=== PATIENT | male | born 1970 | race Caucasian/White ===

== ENCOUNTER 2022-03-14 19:09 | Inpatient (IN) | payer OTHER ==
[~2022-03-14 19:09] MED LIST: Iopamidol-370 76% 500 ML 1 ML ONE
[2022-03-14] MEDS ORDERED: Amiodarone 150 MG/3 ML VIAL ONE ×4 (19:17→19:43)
[2022-03-14] MEDS ORDERED: Vancomycin 1 GM/200 ML (FROZEN) BAG ONE (19:35)
[2022-03-14] MEDS ORDERED: Cefepime 2 GM VIAL ONE (19:35)
[2022-03-14] MEDS ORDERED: Cefepime 1 GM VIAL ONE (19:37)
[2022-03-14] MEDS ORDERED: Magnesium 2 GM/50 ML BAG (IN WATER) ONE (19:41)
[2022-03-14 19:46] LABS: Hemoglobin 16.2 g/dL (14.0-18.0); Mean Corpuscular HGB CONC 32.1 g/dL (32.0-36.0); Mean Corpuscular Hemoglobin 28.5 pg (27.0-31.0); Mean Corpuscular Volume 88.7 fl (78.0-98.0)
[2022-03-14] MEDS ORDERED: NOREPINEPHRINE 8 MG/250 ML-D5W 250 ML ONE (19:51)
[2022-03-14] MEDS ORDERED: VANCOMYCIN 2 GRAM/500 ML BAG 2 GM in Premix Bag 1 BAG IVPB SCH (20:00)
[2022-03-14 20:05] LABS: ALT (SGPT) 29 U/L (8-55); AST (SGOT) 45 U/L (5-34); Albumin 2.7 g/dL (3.5-5.0); Alkaline Phosphatase 221 U/L (40-110); Anion Gap 20 mmol/L (10-20); BUN (Urea Nitrogen) 103 mg/dL (8.4-25.7); Bilirubin, Total 10.8 mg/dL (0.2-1.2); Calc. Creatinine Clearance 0 mL/min (70-130); Calcium 7.5 mg/dL (7.8-10.44); Carbon Dioxide 11 mmol/L (22-29); Chloride 104 mmol/L (98-107); Estimated GFR 26; Globulin 3.2 g/dL (2.4-3.5); Glucose 85 mg/dL (70-105); Potassium 3.8 mmol/L (3.5-5.1); Protein, Total 5.9 g/dL (6.0-8.3); Sodium 131 mmol/L (136-145)
[2022-03-14 20:15] LABS: White Blood Cell (WBC) Count 30.6 10x3/uL (4.8-10.8)
[2022-03-14 20:16] LABS: Band 26 % (5-11); Lymphocytes 1 % (21-51); MDiff Complete? YES; Mean Platelet Volume 13.7 fL (7.4-10.4); Metamyelocyte 1 % (0-0); Monocytes 2 % (0-10); Neutrophil 69 % (42-75); Platelet Count 37 10x3/uL (130-400); Platelet Morphology Comment Appears Decreased; RBC Distribution Width 14.6 % (11.5-14.5); RBC Morphology Normal; Reactive Lymphocytes 1 % (0-10); Toxic Granulation SLIGHT; Vacuoles SLIGHT
[2022-03-14 20:23] LABS: CKMB 8.1 ng/mL (0-6.6)
[2022-03-14 20:52] LABS: SARS-CoV-2 NAA Rapid Test Not Detected (NotDetected)
[2022-03-14] MEDS ORDERED: Piperacillin/Tazobactam 4.5 GM in Sodium Chloride 0.9% 100 ML IVPB SCH (22:00)
[2022-03-14 22:38] LABS: Lactic Acid 3.4 mmol/L (0.5-2.2)
[2022-03-14] MEDS ORDERED: Octreotide Acetate 1,250 MCG in Sodium Chloride 0.9% 250 ML 250 ML IVPB SCH (22:45)
[2022-03-14] MEDS ORDERED: Octreotide Acetate 50 MCG/ML AMP SLOW IVP SCH (22:45)
[2022-03-14] MEDS ORDERED: Pantoprazole 40 MG VIAL IVP SCH (22:45)
[2022-03-14] MEDS ORDERED: Pantoprazole 80 MG in Sodium Chloride 0.9% 100 ML IVPB SCH (22:45)
[2022-03-14] MEDS ORDERED: Acetaminophen 650 MG Suppository PR PRN (22:50)
[2022-03-14] MEDS ORDERED: Ondansetron ODT 4 MG TAB PO PRN (22:50)
[2022-03-14] MEDS ORDERED: Ondansetron PF 4 MG/2 ML Vial IVP PRN (22:50)
[2022-03-14 23:30] LABS: Bilirubin, Direct 7.8 mg/dL (0.1-0.3); Bilirubin, Total 10.5 mg/dL (0.2-1.2)
[2022-03-14 23:32] LABS: ALT (SGPT) 26 U/L (8-55); AST (SGOT) 42 U/L (5-34); Albumin 2.5 g/dL (3.5-5.0); Alkaline Phosphatase 154 U/L (40-110); Anion Gap 18 mmol/L (10-20); BUN (Urea Nitrogen) 100 mg/dL (8.4-25.7); Bilirubin, Total 10.9 mg/dL (0.2-1.2); Calc. Creatinine Clearance 0 mL/min (70-130); Calcium 7.7 mg/dL (7.8-10.44); Carbon Dioxide 11 mmol/L (22-29); Chloride 102 mmol/L (98-107); Estimated GFR 26; Globulin 3.1 g/dL (2.4-3.5); Glucose 97 mg/dL (70-105); Potassium 3.1 mmol/L (3.5-5.1); Protein, Total 5.6 g/dL (6.0-8.3); Sodium 128 mmol/L (136-145)
[2022-03-14] MEDS: Potassium Chloride 20 MEQ in Premix Bag 1 BAG IVPB SCH (23:45)
[2022-03-15 00:22] LABS: Bilirubin 1+ (Negative); Blood, Urine 2+ (Negative); Clarity Turbid (Clear); Glucose, Urine (Dipstick) Normal (Negative); Ketone, Urine Negative (Negative); Leukocyte Negative Leu/uL (Negative); Nitrite Negative (Negative); Protein, Urine (Dipstick) 70 mg/dL (Neg-Trace); RBC/HPF 0-3 HPF (0-3); Specific Gravity, Urine 1.022 (1.002-1.036); Urobilinogen Normal mg/dL (Less than 2); pH, Urine 5.5 (5.0-9.0)
[2022-03-15] MEDS: Sodium Chloride 0.9% 1,000 ML IV SCH ×3 (00:25→21:20)
[2022-03-15 00:37] LABS: Bacteria/HPF 1+ HPF (None Seen); Squamous Epithelial 0-3 HPF (0-3)
[2022-03-15] MEDS: Amiodarone 450 MG, Admixture Fee 1 EACH in Dextrose 5% in Water 250 ML IVPB SCH (01:30)
[2022-03-15] MEDS: NOREPINEPHRINE 8 MG/250 ML-D5W 250 ML IVPB SCH ×3 (02:41→22:39)
[2022-03-15] MEDS: Potassium Chloride 20 MEQ in Premix Bag 1 BAG IVPB SCH (02:44)
[2022-03-15] MEDS: Piperacillin/Tazobactam 3.375 GM in Sodium Chloride 0.9% 100 ML IVPB SCH ×3 (02:45→21:20)
[2022-03-15 04:11] LABS: INR-International Normal Ratio 1.4; PTT 33.8 sec (22.9-36.1); Prothrombin Time 17.6 sec (12.0-14.7)
[2022-03-15 04:12] LABS: Lactic Acid 1.5 mmol/L (0.5-2.2)
[2022-03-15 04:16] LABS: Anion Gap 19 mmol/L (10-20); BUN (Urea Nitrogen) 95 mg/dL (8.4-25.7); CK (CPK) 189 U/L (30-200); Calc. Creatinine Clearance 61 mL/min (70-130); Calcium 7.8 mg/dL (7.8-10.44); Carbon Dioxide 12 mmol/L (22-29); Chloride 104 mmol/L (98-107); Estimated GFR 30; Glucose 154 mg/dL (70-105); Potassium 4.2 mmol/L (3.5-5.1); Sodium 131 mmol/L (136-145); Uric Acid 11.8 mg/dL (3.5-7.2)
[2022-03-15 04:17] LABS: ALT (SGPT) 33 U/L (8-55); AST (SGOT) 46 U/L (5-34); Albumin 2.7 g/dL (3.5-5.0); Alkaline Phosphatase 139 U/L (40-110); Bilirubin, Direct 8.9 mg/dL (0.1-0.3); Bilirubin, Total 11.9 mg/dL (0.2-1.2); Protein, Total 5.8 g/dL (6.0-8.3)
[2022-03-15 04:40] LABS: Anisocytosis SLIGHT = 6-15 cells (100X) (0-5/hpf); Band 21 % (5-11); Hemoglobin 15.4 g/dL (14.0-18.0); Lymphocytes 4 % (21-51); MDiff Complete? YES; Mean Corpuscular HGB CONC 33.6 g/dL (32.0-36.0); Mean Corpuscular Hemoglobin 29.2 pg (27.0-31.0); Mean Corpuscular Volume 86.9 fl (78.0-98.0); Mean Platelet Volume 14.1 fL (7.4-10.4); Monocytes 2 % (0-10); Neutrophil 72 % (42-75); Platelet Count 47 10x3/uL (130-400); Platelet Morphology Comment Appears Decreased; RBC Distribution Width 14.7 % (11.5-14.5); Reactive Lymphocytes 1 % (0-10); Red Blood Cell (RBC) Count 5.28 mill/uL (4.70-6.10); Toxic Granulation SLIGHT; Vacuoles SLIGHT
[2022-03-15] MEDS ORDERED: Pantoprazole 80 MG, Admixture Fee 1 EACH in Sodium Chloride 0.9% 100 ML IVPB SCH (08:15)
[2022-03-15 08:54] LABS: ALT (SGPT) 31 U/L (8-55); AST (SGOT) 41 U/L (5-34); Albumin 2.8 g/dL (3.5-5.0); Alkaline Phosphatase 141 U/L (40-110); Anion Gap 17 mmol/L (10-20); BUN (Urea Nitrogen) 88 mg/dL (8.4-25.7); Bilirubin, Total 12.5 mg/dL (0.2-1.2); Calc. Creatinine Clearance 72 mL/min (70-130); Calcium 7.7 mg/dL (7.8-10.44); Carbon Dioxide 13 mmol/L (22-29); Chloride 106 mmol/L (98-107); Estimated GFR 36; Globulin 3.2 g/dL (2.4-3.5); Glucose 162 mg/dL (70-105); Sodium 132 mmol/L (136-145)
[2022-03-15 11:07] LABS: Campy jejuni + coli by PCR Negative (Negative); STEC Shiga Toxin 1+2 Negative (Negative); Salmonella spp. by PCR Negative (Negative); Shigella spp + EIEC by PCR Negative (Negative)
[2022-03-15 11:08] LABS: Troponin I 1.119 ng/mL (< 0.028)
[2022-03-15] MEDS: Albumin 25% 25 GM/100 ML BOT IVPB SCH ×3 (13:34→22:39)
[2022-03-15] MEDS ORDERED: Bupivacaine/Epinephrine 0.25% 30 ML VIAL ONE (15:51)
[2022-03-15] MEDS ORDERED: Iopamidol 15 ML ONE (15:51)
[2022-03-15] MEDS ORDERED: Fentanyl 250 MCG/5 ML VIAL ONE (15:57)
[2022-03-15] MEDS ORDERED: Lidocaine 1% (PF) 30 ML VIAL ONE (16:03)
[2022-03-15] MEDS ORDERED: Lidocaine 1% PF 5 ML VIAL ONE (16:51)
[2022-03-15] MEDS ORDERED: Rocuronium Bromide 10 MG/ML (10ML VIAL) ONE (16:51)
[2022-03-15] MEDS ORDERED: PHENYLEPHRINE-NS 100 MCG/ML 10 ML SYRINGE ONE (16:51)
[2022-03-15] MEDS ORDERED: Esmolol 100 MG/10 ML VIAL ONE (16:51)
[2022-03-15] MEDS ORDERED: Succinylcholine Chloride 100 MG/5 ML SYRINGE FS ONE (16:51)
[2022-03-15] MEDS ORDERED: Calcium Chloride 1 GM/10 ML Abboject SYRINGE ONE (16:51)
[2022-03-15] MEDS ORDERED: Vecuronium 10 MG VIAL ONE (16:51)
[2022-03-15] MEDS ORDERED: Nitroglycerin 2% Ointment 1 INCH/1 GM Packet ONE (18:13)
[2022-03-15 18:17] LABS: Hemoglobin 13.9 g/dL (14.0-18.0); Mean Corpuscular HGB CONC 33.8 g/dL (32.0-36.0); Mean Corpuscular Hemoglobin 29.6 pg (27.0-31.0); Mean Corpuscular Volume 87.8 fl (78.0-98.0); Mean Platelet Volume 10.9 fL (7.4-10.4); Platelet Count 51 10x3/uL (130-400); RBC Distribution Width 14.8 % (11.5-14.5); Red Blood Cell (RBC) Count 4.69 mill/uL (4.70-6.10); White Blood Cell (WBC) Count 21.5 10x3/uL (4.8-10.8)
[2022-03-15 18:33] LABS: Band 15 % (5-11); Eosinophils 1 % (0-10); Lymphocytes 6 % (21-51); MDiff Complete? YES; Monocytes 8 % (0-10); Neutrophil 69 % (42-75); Platelet Morphology Comment Appears Adequate; RBC Morphology Normal; Reactive Lymphocytes 1 % (0-10); Toxic Granulation SLIGHT; Vacuoles SLIGHT
[2022-03-15] MEDS ORDERED: Midazolam HCl 2 mg/2 ml Vial SLOW IVP PRN (20:53)
[2022-03-15] MEDS ORDERED: Morphine CADD 100 ML IVPB SCH (21:00)
[2022-03-15] MEDS ORDERED: DISCONTINUE PREVIOUS NARCOTIC PAIN MEDICATIONS AND BENZODIAZEPINES FS SCH (21:00)
[2022-03-15] MEDS ORDERED: Propofol BOLUS 1,000 MG/100 ML VIAL IV PRN (21:00)
[2022-03-15] MEDS: Propofol 1,000 MG/100 ML VIAL IV PRN (21:03)
[2022-03-15 21:14] LABS: Actual Bicarbonate (HCO3a) 18.2 mEq/L (22-28); Base Excess (BEa) -10.1 mEq/L (-2.0 to +3.0); CO2 Tension 49.1 mmHg (35.0-45.0); Calcium, Ionized (arterial) 1.15 mmol/L (1.12-1.30); Carboxyhemoglobin (COHb) 0.9 gm% (0.0-3.0); Hemoglobin (Hb) 14.3 g/dL (14.0-18.0); O2 Tension (PaO2), arterial 88.3 mmHg (80.0-100.0); Potassium - ABG Lab 4.16 mmol/L (3.70-5.30)
[2022-03-15 21:27] LABS: ALV-art Gradient 278.125 mmHg (0-20); Puncture Site Arterial Line; pH, Arterial 7.19 (7.35-7.45)
[2022-03-15 21:36] LABS: Hemoglobin 13.7 g/dL (14.0-18.0); Mean Corpuscular HGB CONC 34.3 g/dL (32.0-36.0); Mean Corpuscular Hemoglobin 30.1 pg (27.0-31.0); Mean Corpuscular Volume 87.7 fl (78.0-98.0); Mean Platelet Volume 11.3 fL (7.4-10.4); Platelet Count 49 10x3/uL (130-400); RBC Distribution Width 15.1 % (11.5-14.5); Red Blood Cell (RBC) Count 4.57 mill/uL (4.70-6.10); White Blood Cell (WBC) Count 28.1 10x3/uL (4.8-10.8)
[2022-03-15] MEDS: Morphine 4 MG/ML VIAL SLOW IVP PRN (21:39)
[2022-03-15 21:46] LABS: INR-International Normal Ratio 1.3; PTT 30.5 sec (22.9-36.1); Prothrombin Time 17.1 sec (12.0-14.7)
[2022-03-15 21:54] LABS: Band 14 % (5-11); Hypochromia SLIGHT = 6-15 cells (100X) (0-5/hpf); Lymphocytes 6 % (21-51); MDiff Complete? YES; Monocytes 12 % (0-10); Neutrophil 67 % (42-75); Platelet Morphology Comment Appears Decreased; Reactive Lymphocytes 1 % (0-10)
[2022-03-15 22:21] LABS: Actual Bicarbonate (HCO3a) 17.5 mEq/L (22-28); Base Excess (BEa) -8.2 mEq/L (-2.0 to +3.0); CO2 Tension 36.3 mmHg (35.0-45.0); Calcium, Ionized (arterial) 1.11 mmol/L (1.12-1.30); Carboxyhemoglobin (COHb) 0.8 gm% (0.0-3.0); Hemoglobin (Hb) 13.1 g/dL (14.0-18.0); O2 Tension (PaO2), arterial 105.7 mmHg (80.0-100.0); Potassium - ABG Lab 3.97 mmol/L (3.70-5.30)
[2022-03-15 22:22] LABS: Puncture Site Arterial Line
[2022-03-15 22:23] LABS: ALV-art Gradient 276.725 mmHg (0-20)
[2022-03-16] MEDS: Sodium Chloride 0.9% 1,000 ML IV SCH ×3 (00:30→14:21)
[2022-03-16] MEDS: Piperacillin/Tazobactam 3.375 GM in Sodium Chloride 0.9% 100 ML IVPB SCH ×2 (01:25→09:13)
[2022-03-16 04:46] LABS: Hemoglobin 12.1 g/dL (14.0-18.0); Mean Corpuscular Hemoglobin 29.7 pg (27.0-31.0); Mean Corpuscular Volume 87.5 fl (78.0-98.0); Mean Platelet Volume 11.6 fL (7.4-10.4); Platelet Count 47 10x3/uL (130-400); RBC Distribution Width 14.9 % (11.5-14.5); Red Blood Cell (RBC) Count 4.08 mill/uL (4.70-6.10); White Blood Cell (WBC) Count 19.1 10x3/uL (4.8-10.8)
[2022-03-16] MEDS: Albumin 25% 25 GM/100 ML BOT IVPB SCH (05:00)
[2022-03-16 05:05] LABS: ALT (SGPT) 31 U/L (8-55); AST (SGOT) 47 U/L (5-34); Alkaline Phosphatase 91 U/L (40-110); Anion Gap 15 mmol/L (10-20); BUN (Urea Nitrogen) 67 mg/dL (8.4-25.7); Calc. Creatinine Clearance 95 mL/min (70-130); Calcium 7.6 mg/dL (7.8-10.44); Carbon Dioxide 15 mmol/L (22-29); Chloride 114 mmol/L (98-107); Estimated GFR 50; Globulin 2.6 g/dL (2.4-3.5); Glucose 121 mg/dL (70-105); Potassium 3.7 mmol/L (3.5-5.1); Protein, Total 5.6 g/dL (6.0-8.3); Sodium 140 mmol/L (136-145)
[2022-03-16 05:31] LABS: Band 13 % (5-11); Eosinophils 1 % (0-10); Hypochromia SLIGHT = 6-15 cells (100X) (0-5/hpf); Lymphocytes 18 % (21-51); MDiff Complete? YES; Neutrophil 66 % (42-75); Platelet Morphology Comment Appears Decreased; Reactive Lymphocytes 2 % (0-10)
[2022-03-16] MEDS: Propofol 1,000 MG/100 ML VIAL IV PRN (06:44)
[2022-03-16] MEDS: Morphine 4 MG/ML VIAL SLOW IVP PRN (06:45)
[2022-03-16] MEDS ORDERED: Dexmedetomidine In 0.9 % NaCl 100 ML IVPB SCH (07:45)
[2022-03-16 08:15] LABS: INR-International Normal Ratio 1.4; PTT 30.5 sec (22.9-36.1); Prothrombin Time 18.1 sec (12.0-14.7)
[2022-03-16] MEDS: Pantoprazole 40 MG VIAL IVP SCH (09:12)
[2022-03-16] MEDS: Amiodarone 450 MG, Admixture Fee 1 EACH in Dextrose 5% in Water 250 ML IVPB SCH ×2 (09:12→23:46)
[2022-03-16] MEDS: Dexamethasone 4 mg/ml Vial SLOW IVP SCH ×3 (10:39→22:12)
[2022-03-16] MEDS ORDERED: Calcium Chloride 13.6 MEQ in Sodium Chloride 0.9% 100 ML IVPB SCH (10:45)
[2022-03-16] MEDS ORDERED: Meropenem 1 GM in Sodium Chloride 0.9% 100 ML IVPB SCH ×2 (15:30→22:00)
[2022-03-16] MEDS: Meropenem 1 GM in Sodium Chloride 0.9% 100 ML IVPB SCH (23:37)
[2022-03-17] MEDS: Sodium Chloride 0.9% 1,000 ML IV SCH ×3 (01:55→08:40)
[2022-03-17] MEDS: Dexamethasone 4 mg/ml Vial SLOW IVP SCH (04:23)
[2022-03-17 05:32] LABS: ALT (SGPT) 29 U/L (8-55); AST (SGOT) 30 U/L (5-34); Albumin 2.8 g/dL (3.5-5.0); Alkaline Phosphatase 92 U/L (40-110); Anion Gap 13 mmol/L (10-20); BUN (Urea Nitrogen) 55 mg/dL (8.4-25.7); Bilirubin, Total 15.9 mg/dL (0.2-1.2); Calc. Creatinine Clearance 111 mL/min (70-130); Calcium 7.9 mg/dL (7.8-10.44); Carbon Dioxide 18 mmol/L (22-29); Chloride 115 mmol/L (98-107); Estimated GFR 61; Globulin 2.7 g/dL (2.4-3.5); Glucose 131 mg/dL (70-105); Magnesium 2.7 mg/dL (1.6-2.6); Potassium 4.5 mmol/L (3.5-5.1); Protein, Total 5.5 g/dL (6.0-8.3); Sodium 141 mmol/L (136-145)
[2022-03-17 05:43] LABS: Band 18 % (5-11); Hemoglobin 11.5 g/dL (14.0-18.0); Lymphocytes 3 % (21-51); MDiff Complete? YES; Mean Corpuscular HGB CONC 34.4 g/dL (32.0-36.0); Mean Corpuscular Hemoglobin 30.7 pg (27.0-31.0); Monocytes 4 % (0-10); Neutrophil 75 % (42-75); Platelet Count 48 10x3/uL (130-400); Platelet Morphology Comment Appears Decreased; RBC Distribution Width 14.8 % (11.5-14.5); RBC Morphology Normal; Red Blood Cell (RBC) Count 3.76 mill/uL (4.70-6.10); White Blood Cell (WBC) Count 16.1 10x3/uL (4.8-10.8)
[2022-03-17 06:23] LABS: INR-International Normal Ratio 1.5; PTT 33.1 sec (22.9-36.1); Prothrombin Time 18.9 sec (12.0-14.7)
[2022-03-17] MEDS: Meropenem 1 GM in Sodium Chloride 0.9% 100 ML IVPB SCH (07:35)
[2022-03-17] MEDS: Pantoprazole 40 MG VIAL IVP SCH (07:35)
[2022-03-17] MEDS ORDERED: Furosemide 20 MG/2 ML VIAL SLOW IVP SCH (09:15)
[2022-03-17] MEDS: cefTRIAXone\\ROCEPHIN 2 GM in Sodium Chloride 0.9% 100 ML IVPB SCH (11:55)
[2022-03-17] MEDS: Furosemide 20 MG/2 ML VIAL SLOW IVP SCH ×2 (12:11→23:22)
[2022-03-17] MEDS: Amiodarone 200 MG TAB PO SCH ×2 (14:05→21:21)
[2022-03-18] MEDS: Sodium Chloride 0.9% 1,000 ML IV SCH (02:35)
[2022-03-18 06:24] LABS: ALT (SGPT) 25 U/L (8-55); AST (SGOT) 17 U/L (5-34); Albumin 2.8 g/dL (3.5-5.0); Alkaline Phosphatase 88 U/L (40-110); Anion Gap 14 mmol/L (10-20); BUN (Urea Nitrogen) 51 mg/dL (8.4-25.7); Bilirubin, Total 11.6 mg/dL (0.2-1.2); Calc. Creatinine Clearance 120 mL/min (70-130); Calcium 7.9 mg/dL (7.8-10.44); Carbon Dioxide 20 mmol/L (22-29); Chloride 111 mmol/L (98-107); Estimated GFR 65; Globulin 3.1 g/dL (2.4-3.5); Glucose 126 mg/dL (70-105); Magnesium 1.9 mg/dL (1.6-2.6); Potassium 4.1 mmol/L (3.5-5.1); Protein, Total 5.9 g/dL (6.0-8.3); Sodium 141 mmol/L (136-145)
[2022-03-18 06:30] LABS: Band 20 % (5-11); Hemoglobin 12.3 g/dL (14.0-18.0); Lymphocytes 2 % (21-51); MDiff Complete? YES; Mean Corpuscular HGB CONC 33.1 g/dL (32.0-36.0); Mean Corpuscular Hemoglobin 29.4 pg (27.0-31.0); Mean Corpuscular Volume 88.8 fl (78.0-98.0); Mean Platelet Volume 12.3 fL (7.4-10.4); Monocytes 3 % (0-10); Neutrophil 74 % (42-75); Platelet Count 53 10x3/uL (130-400); Platelet Morphology Comment Appears Decreased; Polychromasia SLIGHT = 2-3 cells (100X) (0-2/hpf); RBC Distribution Width 14.8 % (11.5-14.5); Reactive Lymphocytes 1 % (0-10); White Blood Cell (WBC) Count 12.7 10x3/uL (4.8-10.8)
[2022-03-18] MEDS: Polyethylene Glycol 3350 17 GM Packet PO SCH (09:29)
[2022-03-18] MEDS: Amiodarone 200 MG TAB PO SCH ×3 (09:29→21:31)
[2022-03-18] MEDS: Furosemide 20 MG/2 ML VIAL SLOW IVP SCH ×2 (09:29→21:25)
[2022-03-18] MEDS: Pantoprazole 40 MG VIAL IVP SCH (09:29)
[2022-03-18] MEDS: Senokot S 8.6-50 MG TAB PO SCH ×2 (09:29→21:31)
[2022-03-18] MEDS: cefTRIAXone\\ROCEPHIN 2 GM in Sodium Chloride 0.9% 100 ML IVPB SCH (11:59)
[2022-03-18] MEDS ORDERED: Furosemide 20 MG TAB PO SCH (20:00)
[2022-03-19 05:47] LABS: Hemoglobin 13.7 g/dL (14.0-18.0); Mean Corpuscular HGB CONC 33.1 g/dL (32.0-36.0); Mean Corpuscular Hemoglobin 29.1 pg (27.0-31.0); Mean Platelet Volume 12.9 fL (7.4-10.4); Platelet Count 63 10x3/uL (130-400); RBC Distribution Width 14.9 % (11.5-14.5); Red Blood Cell (RBC) Count 4.69 mill/uL (4.70-6.10); White Blood Cell (WBC) Count 15.8 10x3/uL (4.8-10.8)
[2022-03-19 06:08] LABS: ALT (SGPT) 27 U/L (8-55); AST (SGOT) 20 U/L (5-34); Alkaline Phosphatase 116 U/L (40-110); Anion Gap 12 mmol/L (10-20); BUN (Urea Nitrogen) 36 mg/dL (8.4-25.7); Bilirubin, Total 9.4 mg/dL (0.2-1.2); Calc. Creatinine Clearance 153 mL/min (70-130); Calcium 8.1 mg/dL (7.8-10.44); Carbon Dioxide 23 mmol/L (22-29); Chloride 110 mmol/L (98-107); Estimated GFR 87; Globulin 3.6 g/dL (2.4-3.5); Glucose 112 mg/dL (70-105); Iron 68 ug/dL (65-175); Iron Binding Capacity, Total 215 mcg/dL (261-462); Magnesium 1.8 mg/dL (1.6-2.6); Potassium 3.7 mmol/L (3.5-5.1); Protein, Total 6.6 g/dL (6.0-8.3); Sodium 141 mmol/L (136-145)
[2022-03-19 06:22] LABS: Ferritin 501.18 ng/mL (22-322)
[2022-03-19 06:37] LABS: Hep A IgM AB Non-Reactive (NonReactive)
[2022-03-19 06:38] LABS: HBCM Index 0.24 S/CO (0-0.79); HBSAB Concentration 0.09 mIU/mL; HBSAg Index 0.39 S/CO (0-0.99); Hep A IgM S/CO 0.29 S/CO (0-0.79); Hep B Surf AB NonReactive (NonReactive); Hep B Surf Ag NonReactive S/CO (NonReactive); Hep C IgG Ab Non-Reactive (NonReactive); Hep C Index 0.18 S/CO (0-0.79); Hepatitis B Core IgM Abs NonReactive (NonReactive)
[2022-03-19 06:58] LABS: Band 17 % (5-11); Lymphocytes 4 % (21-51); MDiff Complete? YES; Monocytes 2 % (0-10); Neutrophil 77 % (42-75); Platelet Morphology Comment Appears Decreased; Polychromasia SLIGHT = 2-3 cells (100X) (0-2/hpf)
[2022-03-19] MEDS: Spironolactone 25 MG TAB PO SCH (09:04)
[2022-03-19] MEDS: Polyethylene Glycol 3350 17 GM Packet PO SCH (09:04)
[2022-03-19] MEDS: Pantoprazole 40 MG VIAL IVP SCH ×2 (09:04→09:07)
[2022-03-19] MEDS: Amiodarone 200 MG TAB PO SCH ×3 (09:04→20:06)
[2022-03-19] MEDS: Senokot S 8.6-50 MG TAB PO SCH ×2 (09:05→20:08)
[2022-03-19] MEDS ORDERED: Metoprolol Tartrate 25 MG TAB PO SCH (12:30)
[2022-03-19] MEDS: cefTRIAXone\\ROCEPHIN 2 GM in Sodium Chloride 0.9% 100 ML IVPB SCH (14:03)
[2022-03-19 14:37] VITALS: BMI 36.8
[2022-03-19] MEDS: metroNIDAZOLE 500 MG TAB PO SCH ×2 (17:01→20:07)
[2022-03-19 17:11] LABS: EliA Vaculitis New Method **** NEW METHOD ****; Mitochondrial Ab 2.7 U/mL (<4 Negative)
[2022-03-19] MEDS: Ciprofloxacin 500 MG TAB PO SCH (20:06)
[2022-03-19] MEDS: Metoprolol Tartrate 25 MG TAB PO SCH (20:07)
[2022-03-20] MEDS: Ciprofloxacin 500 MG TAB PO SCH ×2 (05:25→20:15)
[2022-03-20 05:33] LABS: Hemoglobin 12.6 g/dL (14.0-18.0); Mean Corpuscular HGB CONC 32.9 g/dL (32.0-36.0); Mean Corpuscular Hemoglobin 29.3 pg (27.0-31.0); Mean Corpuscular Volume 89.2 fl (78.0-98.0); Mean Platelet Volume 11.9 fL (7.4-10.4); Platelet Count 52 10x3/uL (130-400); RBC Distribution Width 14.9 % (11.5-14.5); White Blood Cell (WBC) Count 18.6 10x3/uL (4.8-10.8)
[2022-03-20 05:51] LABS: ALT (SGPT) 21 U/L (8-55); AST (SGOT) 28 U/L (5-34); Albumin 2.7 g/dL (3.5-5.0); Alkaline Phosphatase 99 U/L (40-110); Anion Gap 13 mmol/L (10-20); BUN (Urea Nitrogen) 26 mg/dL (8.4-25.7); Bilirubin, Total 12.6 mg/dL (0.2-1.2); Calc. Creatinine Clearance 179 mL/min (70-130); Calcium 7.8 mg/dL (7.8-10.44); Carbon Dioxide 21 mmol/L (22-29); Chloride 106 mmol/L (98-107); Estimated GFR 103; Globulin 3.4 g/dL (2.4-3.5); Glucose 106 mg/dL (70-105); Magnesium 1.5 mg/dL (1.6-2.6); Protein, Total 6.1 g/dL (6.0-8.3); Sodium 136 mmol/L (136-145)
[2022-03-20 05:52] LABS: Band 5 % (5-11); Hypochromia SLIGHT = 6-15 cells (100X) (0-5/hpf); Lymphocytes 3 % (21-51); MDiff Complete? YES; Monocytes 4 % (0-10); Neutrophil 88 % (42-75); Platelet Morphology Comment Appears Decreased
[2022-03-20] MEDS: Amiodarone 200 MG TAB PO SCH ×3 (08:20→20:15)
[2022-03-20] MEDS: metroNIDAZOLE 500 MG TAB PO SCH ×3 (08:20→20:16)
[2022-03-20] MEDS: Metoprolol Tartrate 25 MG TAB PO SCH ×2 (08:20→20:15)
[2022-03-20] MEDS: Pantoprazole 40 MG VIAL IVP SCH ×2 (08:20→10:07)
[2022-03-20] MEDS: Spironolactone 25 MG TAB PO SCH (08:20)
[2022-03-20] MEDS: Polyethylene Glycol 3350 17 GM Packet PO SCH (08:21)
[2022-03-20] MEDS: Senokot S 8.6-50 MG TAB PO SCH ×2 (08:21→20:16)
[2022-03-21] MEDS ORDERED: Baclofen 10 MG TAB PO SCH ×2 (03:15→21:15)
[2022-03-21 05:12] LABS: Alpha-1-Antitrypsin 226 mg/dL (101-187)
[2022-03-21 05:19] LABS: ALT (SGPT) 22 U/L (8-55); AST (SGOT) 16 U/L (5-34); Albumin 2.4 g/dL (3.5-5.0); Alkaline Phosphatase 94 U/L (40-110); Anion Gap 11 mmol/L (10-20); BUN (Urea Nitrogen) 20 mg/dL (8.4-25.7); Bilirubin, Total 8.8 mg/dL (0.2-1.2); Calc. Creatinine Clearance 192 mL/min (70-130); Calcium 7.8 mg/dL (7.8-10.44); Carbon Dioxide 22 mmol/L (22-29); Chloride 105 mmol/L (98-107); Estimated GFR 105; Globulin 3.5 g/dL (2.4-3.5); Glucose 121 mg/dL (70-105); Magnesium 1.8 mg/dL (1.6-2.6); Potassium 4.2 mmol/L (3.5-5.1); Protein, Total 5.9 g/dL (6.0-8.3); Sodium 134 mmol/L (136-145)
[2022-03-21] MEDS: Ciprofloxacin 500 MG TAB PO SCH ×2 (05:25→19:36)
[2022-03-21 06:04] LABS: Anisocytosis SLIGHT = 6-15 cells (100X) (0-5/hpf); Band 1 % (5-11); Hemoglobin 11.8 g/dL (14.0-18.0); Lymphocytes 6 % (21-51); MDiff Complete? YES; Mean Corpuscular HGB CONC 32.4 g/dL (32.0-36.0); Mean Corpuscular Hemoglobin 29.5 pg (27.0-31.0); Mean Platelet Volume 8.3 fL (7.4-10.4); Monocytes 5 % (0-10); Neutrophil 88 % (42-75); Platelet Count 51 10x3/uL (130-400); Platelet Morphology Comment Appears Decreased; RBC Distribution Width 14.9 % (11.5-14.5); Red Blood Cell (RBC) Count 3.99 mill/uL (4.70-6.10); White Blood Cell (WBC) Count 16.2 10x3/uL (4.8-10.8)
[2022-03-21] MEDS: metroNIDAZOLE 500 MG TAB PO SCH ×3 (08:07→21:27)
[2022-03-21] MEDS: Senokot S 8.6-50 MG TAB PO SCH ×2 (08:07→21:08)
[2022-03-21] MEDS: Pantoprazole 40 MG VIAL IVP SCH (08:07)
[2022-03-21] MEDS: Spironolactone 25 MG TAB PO SCH (08:07)
[2022-03-21] MEDS: Metoprolol Tartrate 25 MG TAB PO SCH ×2 (08:07→21:27)
[2022-03-21] MEDS: Amiodarone 200 MG TAB PO SCH ×3 (08:07→21:27)
[2022-03-21] MEDS: Polyethylene Glycol 3350 17 GM Packet PO SCH (08:07)
[2022-03-21] MEDS: Gabapentin 300 MG CAP PO SCH ×2 (09:22→21:28)
[2022-03-21] MEDS ORDERED: Metoclopramide HCl 10 MG/2 ML VIAL IVP SCH (23:00)
[2022-03-22] MEDS: Metoclopramide HCl 10 MG TAB PO SCH ×2 (02:53→09:38)
[2022-03-22] MEDS: Ciprofloxacin 500 MG TAB PO SCH ×2 (05:25→20:46)
[2022-03-22 05:51] LABS: #Eosinphils 0.1 thou/uL (0.0-0.7); #Lymphocytes 1.4 thou/uL (1.20-3.40); #Neutrophils 15.6 thou/uL (1.40-6.50); %Eosinophils 0.6 % (0.0-10.0); %Lymphocytes 7.5 % (21.0-51.0); %Monocytes 5.7 % (0.0-10.0); %Neutrophils 86.2 % (42.0-75.0); Hemoglobin 11.5 g/dL (14.0-18.0); Mean Corpuscular HGB CONC 32.5 g/dL (32.0-36.0); Mean Corpuscular Hemoglobin 29.9 pg (27.0-31.0); Mean Corpuscular Volume 92.2 fl (78.0-98.0); Mean Platelet Volume 12.8 fL (7.4-10.4); Platelet Count 72 10x3/uL (130-400); RBC Distribution Width 15.5 % (11.5-14.5); Red Blood Cell (RBC) Count 3.84 mill/uL (4.70-6.10); White Blood Cell (WBC) Count 18.1 10x3/uL (4.8-10.8)
[2022-03-22 06:45] LABS: ALT (SGPT) 23 U/L (8-55); AST (SGOT) 25 U/L (5-34); Albumin 2.5 g/dL (3.5-5.0); Alkaline Phosphatase 105 U/L (40-110); Anion Gap 10 mmol/L (10-20); BUN (Urea Nitrogen) 22 mg/dL (8.4-25.7); Bilirubin, Total 8.6 mg/dL (0.2-1.2); Calc. Creatinine Clearance 164 mL/min (70-130); Calcium 7.9 mg/dL (7.8-10.44); Carbon Dioxide 23 mmol/L (22-29); Chloride 105 mmol/L (98-107); Estimated GFR 95; Globulin 3.4 g/dL (2.4-3.5); Glucose 91 mg/dL (70-105); Magnesium 1.7 mg/dL (1.6-2.6); Potassium 4.6 mmol/L (3.5-5.1); Protein, Total 5.9 g/dL (6.0-8.3); Sodium 133 mmol/L (136-145)
[2022-03-22] MEDS: Pantoprazole 40 MG VIAL IVP SCH (09:20)
[2022-03-22] MEDS: Senokot S 8.6-50 MG TAB PO SCH ×2 (09:34→20:50)
[2022-03-22] MEDS: Polyethylene Glycol 3350 17 GM Packet PO SCH (09:34)
[2022-03-22] MEDS: metroNIDAZOLE 500 MG TAB PO SCH ×3 (09:35→20:46)
[2022-03-22] MEDS: Spironolactone 25 MG TAB PO SCH (09:35)
[2022-03-22] MEDS: Amiodarone 200 MG TAB PO SCH ×3 (09:35→20:46)
[2022-03-22] MEDS: Metoprolol Tartrate 25 MG TAB PO SCH ×2 (09:35→20:45)
[2022-03-22] MEDS: Gabapentin 300 MG CAP PO SCH ×2 (09:35→20:45)
[2022-03-22 09:38] LABS: Smooth Muscle Total ABS 8 Units (0-19)
[2022-03-22] MEDS ORDERED: Baclofen 10 MG TAB PO SCH (15:00)
[2022-03-22] MEDS: chlorproMAZINE HCl 25 MG TAB PO SCH ×2 (15:19→20:45)
[2022-03-23] MEDS: Ciprofloxacin 500 MG TAB PO SCH ×2 (05:06→19:25)
[2022-03-23 06:13] LABS: #Eosinphils 0.1 thou/uL (0.0-0.7); #Lymphocytes 1.1 thou/uL (1.20-3.40); #Monocytes 0.8 thou/uL (0.11-0.59); #Neutrophils 7.7 thou/uL (1.40-6.50); %Basophils 0.1 % (0.0-1.0); %Eosinophils 1.3 % (0.0-10.0); %Lymphocytes 11.8 % (21.0-51.0); %Monocytes 7.8 % (0.0-10.0); Hemoglobin 10.2 g/dL (14.0-18.0); Mean Corpuscular HGB CONC 32.4 g/dL (32.0-36.0); Mean Corpuscular Volume 92.6 fl (78.0-98.0); Platelet Count 80 10x3/uL (130-400); RBC Distribution Width 15.1 % (11.5-14.5); White Blood Cell (WBC) Count 9.7 10x3/uL (4.8-10.8)
[2022-03-23] MEDS: metroNIDAZOLE 500 MG TAB PO SCH ×3 (09:19→21:06)
[2022-03-23] MEDS: Spironolactone 25 MG TAB PO SCH (09:19)
[2022-03-23] MEDS: chlorproMAZINE HCl 25 MG TAB PO SCH ×3 (09:19→21:05)
[2022-03-23] MEDS: Metoprolol Tartrate 25 MG TAB PO SCH ×2 (09:19→21:05)
[2022-03-23] MEDS: Gabapentin 300 MG CAP PO SCH ×2 (09:19→21:06)
[2022-03-23] MEDS: Amiodarone 200 MG TAB PO SCH ×3 (09:19→21:05)
[2022-03-23] MEDS: Polyethylene Glycol 3350 17 GM Packet PO SCH (09:20)
[2022-03-23] MEDS: Senokot S 8.6-50 MG TAB PO SCH ×2 (09:20→21:24)
[2022-03-24] MEDS: Ciprofloxacin 500 MG TAB PO SCH ×2 (05:08→21:11)
[2022-03-24 06:17] LABS: Anion Gap 11 mmol/L (10-20); BUN (Urea Nitrogen) 20 mg/dL (8.4-25.7); Calc. Creatinine Clearance 153 mL/min (70-130); Calcium 8.2 mg/dL (7.8-10.44); Carbon Dioxide 23 mmol/L (22-29); Chloride 106 mmol/L (98-107); Estimated GFR 87; Glucose 87 mg/dL (70-105); Potassium 5.1 mmol/L (3.5-5.1); Sodium 135 mmol/L (136-145)
[2022-03-24 06:55] LABS: #Eosinphils 0.1 thou/uL (0.0-0.7); #Lymphocytes 1.3 thou/uL (1.20-3.40); #Monocytes 0.8 thou/uL (0.11-0.59); #Neutrophils 9.2 thou/uL (1.40-6.50); %Basophils 0.1 % (0.0-1.0); %Eosinophils 0.6 % (0.0-10.0); %Lymphocytes 11.7 % (21.0-51.0); %Monocytes 6.6 % (0.0-10.0); Hemoglobin 10.3 g/dL (14.0-18.0); Mean Corpuscular HGB CONC 32.2 g/dL (32.0-36.0); Mean Corpuscular Volume 93.3 fl (78.0-98.0); Mean Platelet Volume 11.9 fL (7.4-10.4); Platelet Count 105 10x3/uL (130-400); Platelet Morphology Comment Appears Decreased; RBC Distribution Width 15.2 % (11.5-14.5); Red Blood Cell (RBC) Count 3.45 mill/uL (4.70-6.10); White Blood Cell (WBC) Count 11.3 10x3/uL (4.8-10.8)
[2022-03-24] MEDS: metroNIDAZOLE 500 MG TAB PO SCH ×3 (09:14→21:11)
[2022-03-24] MEDS: Amiodarone 200 MG TAB PO SCH ×3 (09:14→21:11)
[2022-03-24] MEDS: Metoprolol Tartrate 25 MG TAB PO SCH ×2 (09:14→21:11)
[2022-03-24] MEDS: chlorproMAZINE HCl 25 MG TAB PO SCH ×3 (09:14→21:11)
[2022-03-24] MEDS: Polyethylene Glycol 3350 17 GM Packet PO SCH (09:15)
[2022-03-24] MEDS: Gabapentin 300 MG CAP PO SCH ×2 (09:15→21:12)
[2022-03-24] MEDS: Senokot S 8.6-50 MG TAB PO SCH ×2 (09:15→21:11)
[2022-03-24] MEDS: Spironolactone 25 MG TAB PO SCH (09:15)
[2022-03-24] MEDS: Calcium Carbonate 500 MG ChewTAB PO PRN ×2 (14:25→21:15)
[2022-03-24] MEDS: Baclofen 10 MG TAB PO SCH (21:11)
[2022-03-24] MEDS: Famotidine 20 MG TAB PO SCH (21:11)
[2022-03-24] MEDS: Acetaminophen 325 MG TAB PO PRN (21:16)
[2022-03-25] MEDS: Ciprofloxacin 500 MG TAB PO SCH ×2 (05:31→20:21)
[2022-03-25 05:54] LABS: Anion Gap 10 mmol/L (10-20); BUN (Urea Nitrogen) 19 mg/dL (8.4-25.7); Calc. Creatinine Clearance 135 mL/min (70-130); Calcium 8.1 mg/dL (7.8-10.44); Carbon Dioxide 24 mmol/L (22-29); Chloride 107 mmol/L (98-107); Estimated GFR 75; Glucose 78 mg/dL (70-105); Potassium 5.2 mmol/L (3.5-5.1); Sodium 136 mmol/L (136-145)
[2022-03-25 06:17] LABS: #Eosinphils 0.1 thou/uL (0.0-0.7); #Lymphocytes 1.1 thou/uL (1.20-3.40); #Monocytes 0.8 thou/uL (0.11-0.59); #Neutrophils 6.2 thou/uL (1.40-6.50); %Basophils 0.2 % (0.0-1.0); %Eosinophils 1.1 % (0.0-10.0); %Lymphocytes 13.3 % (21.0-51.0); %Monocytes 9.6 % (0.0-10.0); %Neutrophils 75.8 % (42.0-75.0); Hemoglobin 9.6 g/dL (14.0-18.0); Mean Corpuscular HGB CONC 32.2 g/dL (32.0-36.0); Mean Corpuscular Hemoglobin 30.2 pg (27.0-31.0); Mean Platelet Volume 11.2 fL (7.4-10.4); Platelet Count 111 10x3/uL (130-400); RBC Distribution Width 15.2 % (11.5-14.5); Red Blood Cell (RBC) Count 3.17 mill/uL (4.70-6.10); White Blood Cell (WBC) Count 8.2 10x3/uL (4.8-10.8)
[2022-03-25] MEDS: Metoprolol Tartrate 25 MG TAB PO SCH ×2 (09:09→20:21)
[2022-03-25] MEDS: Baclofen 10 MG TAB PO SCH ×2 (09:09→20:21)
[2022-03-25] MEDS: metroNIDAZOLE 500 MG TAB PO SCH ×3 (09:09→20:21)
[2022-03-25] MEDS: Senokot S 8.6-50 MG TAB PO SCH ×2 (09:09→20:20)
[2022-03-25] MEDS: Gabapentin 300 MG CAP PO SCH ×2 (09:09→20:21)
[2022-03-25] MEDS: Polyethylene Glycol 3350 17 GM Packet PO SCH (09:09)
[2022-03-25] MEDS: Famotidine 20 MG TAB PO SCH ×2 (09:09→20:21)
[2022-03-25] MEDS: Spironolactone 25 MG TAB PO SCH (09:10)
[2022-03-25] MEDS: Amiodarone 200 MG TAB PO SCH ×3 (09:10→20:20)
[2022-03-25 09:59] LABS: Potassium 4.9 mmol/L (3.5-5.1)
[2022-03-25] MEDS: chlorproMAZINE HCl 25 MG TAB PO SCH ×3 (11:24→20:21)
[2022-03-25 11:31] LABS: ALT (SGPT) 19 U/L (8-55); AST (SGOT) 21 U/L (5-34); Albumin 2.6 g/dL (3.5-5.0); Alkaline Phosphatase 123 U/L (40-110); Bilirubin, Direct 3.6 mg/dL (0.1-0.3); Bilirubin, Total 5.5 mg/dL (0.2-1.2); Protein, Total 6.4 g/dL (6.0-8.3)
[2022-03-25] MEDS: Acetaminophen 325 MG TAB PO PRN (20:26)
[2022-03-25] MEDS: Calcium Carbonate 500 MG ChewTAB PO PRN (20:26)
[2022-03-26] MEDS: Ciprofloxacin 500 MG TAB PO SCH (05:16)
[2022-03-26 05:49] LABS: #Eosinphils 0.1 thou/uL (0.0-0.7); #Lymphocytes 1.1 thou/uL (1.20-3.40); #Monocytes 0.8 thou/uL (0.11-0.59); #Neutrophils 5.9 thou/uL (1.40-6.50); %Basophils 0.4 % (0.0-1.0); %Eosinophils 0.7 % (0.0-10.0); %Lymphocytes 14.2 % (21.0-51.0); %Monocytes 9.8 % (0.0-10.0); %Neutrophils 74.9 % (42.0-75.0); Hemoglobin 9.6 g/dL (14.0-18.0); Mean Corpuscular HGB CONC 32.6 g/dL (32.0-36.0); Mean Corpuscular Hemoglobin 30.8 pg (27.0-31.0); Mean Corpuscular Volume 94.4 fl (78.0-98.0); Platelet Count 133 10x3/uL (130-400); RBC Distribution Width 15.3 % (11.5-14.5); Red Blood Cell (RBC) Count 3.12 mill/uL (4.70-6.10); White Blood Cell (WBC) Count 7.8 10x3/uL (4.8-10.8)
[2022-03-26] MEDS ORDERED: Levothyroxine Sodium 125 MCG TAB PO SCH (06:00)
[2022-03-26 06:21] LABS: ALT (SGPT) 20 U/L (8-55); AST (SGOT) 20 U/L (5-34); Albumin 2.5 g/dL (3.5-5.0); Alkaline Phosphatase 124 U/L (40-110); Bilirubin, Direct 3.2 mg/dL (0.1-0.3); Bilirubin, Total 4.8 mg/dL (0.2-1.2); Protein, Total 6.7 g/dL (6.0-8.3)
[2022-03-26 06:26] LABS: Anion Gap 12 mmol/L (10-20); BUN (Urea Nitrogen) 18 mg/dL (8.4-25.7); Calc. Creatinine Clearance 130 mL/min (70-130); Calcium 8.4 mg/dL (7.8-10.44); Carbon Dioxide 24 mmol/L (22-29); Chloride 108 mmol/L (98-107); Estimated GFR 72; Glucose 88 mg/dL (70-105); Iron 64 ug/dL (65-175); Iron Binding Capacity, Total 179 mcg/dL (261-462); Potassium 5.1 mmol/L (3.5-5.1); Sodium 139 mmol/L (136-145)
[2022-03-26 06:47] LABS: Ferritin 572.48 ng/mL (22-322)
[2022-03-26] MEDS: Gabapentin 300 MG CAP PO SCH (08:34)
[2022-03-26] MEDS: metroNIDAZOLE 500 MG TAB PO SCH (08:34)
[2022-03-26] MEDS: Famotidine 20 MG TAB PO SCH (08:34)
[2022-03-26] MEDS: Baclofen 10 MG TAB PO SCH (08:34)
[2022-03-26] MEDS: chlorproMAZINE HCl 25 MG TAB PO SCH (08:34)
[2022-03-26] MEDS: Metoprolol Tartrate 25 MG TAB PO SCH (08:34)
[2022-03-26] MEDS: Amiodarone 200 MG TAB PO SCH (08:35)
[2022-03-26] MEDS: Senokot S 8.6-50 MG TAB PO SCH (08:36)
[2022-03-26] MEDS: Polyethylene Glycol 3350 17 GM Packet PO SCH (08:36)
[2022-03-26] MEDS ORDERED: Aspirin 81 mg Enteric Coated Tablet PO SCH (09:00)
[2022-03-26 09:28] VITALS: BP 117/72; TEMP 97.5
[2022-03-26] MEDS ORDERED: Bacitracin 1 PK TOP SCH (15:00)
== END 2022-03-26 13:09 | disposition home or self-care (01) | DRG 853 ==
LOC: ERS 19:09 → EEVIPCON 22:03 → CCU 22:03 → MSONC 03-18 02:23
PROVIDERS: ADMIT Family Medicine; ATTEND Family Medicine
PROC: 3E04329 Introduction of Other Anti-infective into Central Vein, Percutaneous Approach (ICD-10-PCS; 2022-03-14)
PROC: 3E043XZ Introduction of Vasopressor into Central Vein, Percutaneous Approach (ICD-10-PCS; 2022-03-14)
PROC: 02HV33Z Insertion of Infusion Device into Superior Vena Cava, Percutaneous Approach (ICD-10-PCS; 2022-03-14)
PROC: B548ZZA Ultrasonography of Superior Vena Cava, Guidance (ICD-10-PCS; 2022-03-14)
PROC: 0FT44ZZ Resection of Gallbladder, Percutaneous Endoscopic Approach (ICD-10-PCS; principal; 2022-03-15)
PROC: 0WQF4ZZ Repair Abdominal Wall, Percutaneous Endoscopic Approach (ICD-10-PCS; 2022-03-15)
PROC: 6A551Z2 Pheresis of Platelets, Multiple (ICD-10-PCS; 2022-03-15)
PROC: 0DJD8ZZ Inspection of Lower Intestinal Tract, Via Natural or Artificial Opening Endoscopic (ICD-10-PCS; 2022-03-15)
DX: A41.4 Sepsis due to anaerobes (principal); G93.41 Metabolic encephalopathy; R65.21 Severe sepsis with septic shock; J96.01 Acute respiratory failure with hypoxia; I21.A1 Myocardial infarction type 2; K42.0 Umbilical hernia with obstruction, without gangrene; K80.00 Calculus of gallbladder with acute cholecystitis without obstruction; K92.1 Melena; N17.9 Acute kidney failure, unspecified; I82.890 Acute embolism and thrombosis of other specified veins; D62 Acute posthemorrhagic anemia; K76.6 Portal hypertension; Z20.822 Contact with and (suspected) exposure to COVID-19; M10.9 Gout, unspecified; M54.50 Low back pain, unspecified; E03.9 Hypothyroidism, unspecified; I10 Essential (primary) hypertension; E80.6 Other disorders of bilirubin metabolism; I48.91 Unspecified atrial fibrillation; D69.6 Thrombocytopenia, unspecified; I86.4 Gastric varices; K57.30 Diverticulosis of large intestine without perforation or abscess without bleeding; R06.6 Hiccough; E83.51 Hypocalcemia; Z78.1 Physical restraint status; Z95.5 Presence of coronary angioplasty implant and graft; Z87.891 Personal history of nicotine dependence; Z79.899 Other long term (current) drug therapy; Z79.82 Long term (current) use of aspirin; Z79.890 Hormone replacement therapy
CPT/HCPCS: 36415; 36416; 36430; 36556; 71045; 74177; 74181; 76705; 80048; 80053; 80074; 80076; 81001; 82103; 82105; 82140; 82247; 82533; 82550; 82553; 82607; 82728; 82805; 83516; 83540; 83550; 83605; 83630; 83735; 83880; 84145; 84443; 84484; 84550; 85025; 85384; 85610; 85730; 86015; 86706; 86708; 86850; 86900; 86901; 87040; 87076; 87077; 87086; 87149; 87186; 87324; 87328; 87329; 87449; 87505; 87811; 88302; 88304; 93005; 93306; 94002; 94003; 96365; 96366; 96367; 96368; 96376; C1889; C9113; J0282; J0692; J0696; J1100; J1642; J1940; J2001; J2185; J2250; J2270; J2354; J2405; J2543; J2597; J2704; J3010; J3370; J3370-JW; J3475; J3480; J3490; J7050; J7070; P9035; P9047; Q0161; Q9967; U0002

== ENCOUNTER 2023-12-10 19:31 | Inpatient (IN) | payer OTHER ==
[2023-12-10] MEDS ORDERED: Ondansetron ODT 4 MG TAB PO PRN (21:03)
[2023-12-10] MEDS ORDERED: Acetaminophen 325 MG TAB PO PRN (21:03)
[2023-12-10 21:47] LABS: Hematocrit 25.1 % (42.0-52.0); Hemoglobin 7.5 g/dL (14.0-18.0); Mean Corpuscular HGB CONC 29.9 g/dL (32.0-36.0); Mean Corpuscular Hemoglobin 23.4 pg (27.0-31.0); Mean Corpuscular Volume 78.4 fL (78.0-98.0); Mean Platelet Volume 10.9 fL (7.4-10.4); Platelet Count 82 10x3/uL (130-400); RBC Distribution Width 18.5 % (11.5-14.5)
[2023-12-10 21:58] LABS: INR-International Normal Ratio 1.2; PTT 25.3 sec (22.9-36.1); Prothrombin Time 15.3 sec (12.0-14.7)
[2023-12-10 21:59] LABS: Hemoglobin A1c 5.2 % (4.0-6.0)
[2023-12-10 22:01] LABS: Iron 19 ug/dL (65-175); Iron Binding Capacity, Total 383 mcg/dL (261-462)
[2023-12-10 22:03] LABS: Cardiac Risk 3.2 (Less than 4.5)
[2023-12-10 22:05] LABS: Troponin I Less than 0.010 ng/mL (< 0.028)
[2023-12-10 22:31] LABS: Ferritin 6.73 ng/mL (22-322); Thyroid Stimulating Hormone 1.325 uIU/mL (0.35-4.94)
[2023-12-10 22:34] LABS: Anisocytosis SLIGHT = 6-15 cells HPF (0-5); Band 2 % (5-11); Eosinophils 11 % (0-10); Hypochromia SLIGHT = 6-15 cells HPF (0-5); Lymphocytes 21 % (21-51); Metamyelocyte 2 % (0-0); Microcytosis SLIGHT = 6-15 cells HPF (0-5); Monocytes 1 % (0-10); Myelocyte 2 % (0-0); Neutrophil 61 % (42-75); Ovalocytes SLIGHT = 2-5 cells HPF (0-1); Platelet Adequacy Comment Platelets Decreased; Polychromasia MODERATE = 3-4 cells HPF (0-2); Reactive Lymphocytes 1 % (0-10); Tear Drops SLIGHT = 2-5 cells HPF (0-1)
[2023-12-10] MEDS ORDERED: Iron Sucrose Complex 100 MG in Sodium Chloride 0.9% 100 ML IVPB SCH (23:45)
[2023-12-11] MEDS: Sodium Ferric Gluconate 125 MG in Sodium Chloride 0.9% 100 ML IVPB SCH (00:31)
[2023-12-11 04:59] LABS: #Basophils Less than 0.03 10x3/uL (0.0-0.2); %Basophils 0.7 % (0.0-1.0); %Eosinophils 5.3 % (0.0-10.0); %Lymphocytes 19.9 % (21.0-51.0); %Monocytes 14.9 % (0.0-10.0); %Neutrophils 58.8 % (42.0-75.0); Hemoglobin 7.7 g/dL (14.0-18.0); Mean Corpuscular HGB CONC 29.6 g/dL (32.0-36.0); Mean Corpuscular Hemoglobin 23.2 pg (27.0-31.0); Mean Corpuscular Volume 78.3 fL (78.0-98.0); Mean Platelet Volume 11.4 fL (7.4-10.4); Platelet Count 91 10x3/uL (130-400); RBC Distribution Width 18.6 % (11.5-14.5); Red Blood Cell (RBC) Count 3.32 mill/uL (4.70-6.10)
[2023-12-11 05:09] LABS: ALT (SGPT) 47 U/L (8-55); AST (SGOT) 29 U/L (5-34); Alkaline Phosphatase 102 U/L (40-110); Anion Gap 10 mmol/L (10-20); BUN (Urea Nitrogen) 12 mg/dL (8.4-25.7); Bilirubin, Total 0.9 mg/dL (0.2-1.2); Calc. Creatinine Clearance 158 mL/min (70-130); Calcium 8.3 mg/dL (7.8-10.44); Carbon Dioxide 21 mmol/L (22-29); Chloride 116 mmol/L (98-107); Estimated GFR 98; Globulin 3.6 g/dL (2.4-3.5); Glucose 95 mg/dL (70-105); Potassium 3.8 mmol/L (3.5-5.1); Protein, Total 6.6 g/dL (6.0-8.3); Sodium 143 mmol/L (136-145)
[2023-12-11 06:24] LABS: Hematocrit 26.8 % (42.0-52.0); Platelet Count 86 10x3/uL (130-400)
[2023-12-11 08:11] LABS: Troponin I Less than 0.010 ng/mL (< 0.028)
[2023-12-11] MEDS: Allopurinol 300 MG TAB PO SCH (08:35)
[2023-12-11] MEDS: Pantoprazole DR 40 MG TAB PO SCH (08:35)
[2023-12-11] MEDS: Atorvastatin Calcium 40 MG TAB PO SCH (08:35)
[2023-12-11] MEDS: DULoxetine 60 MG CAP PO SCH (08:35)
[2023-12-11] MEDS: Ferrous Sulfate 325 MG TAB PO SCH (08:36)
[2023-12-11] MEDS: Loratadine 10 MG TAB PO SCH (08:36)
[2023-12-11] MEDS: Docusate 100 MG CAP PO SCH (08:36)
[2023-12-11] MEDS: Betamethasone Val 0.1% Lotion 60 ML BOT TOP SCH (11:07)
[2023-12-11] MEDS ORDERED: Regadenoson 0.4 MG/5 ML SYRINGE ONE (12:45)
[2023-12-11 12:49] VITALS: BMI 33.8
[2023-12-11] MEDS: Carvedilol 25 MG TAB PO SCH (13:33)
[2023-12-11 22:06] VITALS: BMI 34.0
[2023-12-12 06:16] LABS: ALT (SGPT) 39 U/L (8-55); AST (SGOT) 22 U/L (5-34); Albumin 3.1 g/dL (3.5-5.0); Alkaline Phosphatase 102 U/L (40-110); Anion Gap 12 mmol/L (10-20); BUN (Urea Nitrogen) 12 mg/dL (8.4-25.7); Bilirubin, Total 1.1 mg/dL (0.2-1.2); Calc. Creatinine Clearance 166 mL/min (70-130); Calcium 8.8 mg/dL (7.8-10.44); Carbon Dioxide 21 mmol/L (22-29); Chloride 115 mmol/L (98-107); Estimated GFR 102; Globulin 3.7 g/dL (2.4-3.5); Glucose 84 mg/dL (70-105); Potassium 3.8 mmol/L (3.5-5.1); Protein, Total 6.8 g/dL (6.0-8.3); Sodium 144 mmol/L (136-145)
[2023-12-12 06:43] LABS: #Basophils Less than 0.03 10x3/uL (0.0-0.2); %Basophils 0.3 % (0.0-1.0); %Eosinophils 5.4 % (0.0-10.0); %Lymphocytes 19.8 % (21.0-51.0); %Monocytes 11.8 % (0.0-10.0); %Neutrophils 62.4 % (42.0-75.0); Hematocrit 26.8 % (42.0-52.0); Mean Corpuscular HGB CONC 29.9 g/dL (32.0-36.0); Mean Corpuscular Hemoglobin 23.4 pg (27.0-31.0); Mean Corpuscular Volume 78.4 fL (78.0-98.0); Platelet Count 81 10x3/uL (130-400); RBC Distribution Width 18.6 % (11.5-14.5); Red Blood Cell (RBC) Count 3.42 mill/uL (4.70-6.10)
[2023-12-12 17:22] VITALS: BP 112/62; TEMP 98.5
== END 2023-12-12 21:18 | DRG 809 ==
LOC: 2SW 19:36 → OBSVTOIN 12-12 08:13
PROVIDERS: ADMIT Student in an Organized Health Care Education/Training Program; ATTEND Student in an Organized Health Care Education/Training Program
PROC: 30233N1 Transfusion of Nonautologous Red Blood Cells into Peripheral Vein, Percutaneous Approach (ICD-10-PCS; principal; 2023-12-11)
DX: D61.818 Other pancytopenia (principal); I85.10 Secondary esophageal varices without bleeding; I25.10 Atherosclerotic heart disease of native coronary artery without angina pectoris; I10 Essential (primary) hypertension; K70.30 Alcoholic cirrhosis of liver without ascites; R07.89 Other chest pain; E78.5 Hyperlipidemia, unspecified; E03.9 Hypothyroidism, unspecified; Z90.49 Acquired absence of other specified parts of digestive tract; Z79.899 Other long term (current) drug therapy; Z95.5 Presence of coronary angioplasty implant and graft; Z96.653 Presence of artificial knee joint, bilateral; Z82.49 Family history of ischemic heart disease and other diseases of the circulatory system; Z87.891 Personal history of nicotine dependence
CPT/HCPCS: 36415; 36416; 36430; 71045; 78452; 80053; 80061; 82274; 82607; 82728; 83036; 83540; 83550; 83735; 83880; 84443; 84484; 85025; 85046; 85060; 85610; 85730; 86850; 86900; 86901; 86922; 93005; 93017; 93306; 96365; A9502; G0378; J2785; J2916; P9016

== ENCOUNTER 2023-12-31 21:41 | Inpatient (IN) | payer OTHER ==
[2023-12-31 23:08] VITALS: BMI 33.7
[2024-01-01] MEDS: Sucralfate 1 GM/10 ML UDCUP PO SCH (02:48)
[2024-01-01] MEDS: Acetaminophen 500 MG TAB PO SCH (04:59)
[2024-01-01 06:30] LABS: #Basophils Less than 0.03 10x3/uL (0.0-0.2); %Basophils 0.4 % (0.0-1.0); %Lymphocytes 33.3 % (21.0-51.0); %Monocytes 12.1 % (0.0-10.0); Hematocrit 24.3 % (42.0-52.0); Hemoglobin 7.3 g/dL (14.0-18.0); Mean Corpuscular Hemoglobin 23.8 pg (27.0-31.0); Mean Corpuscular Volume 79.2 fL (78.0-98.0); Mean Platelet Volume 12.6 fL (7.4-10.4); Platelet Count 107 10x3/uL (130-400); Red Blood Cell (RBC) Count 3.07 mill/uL (4.70-6.10)
[2024-01-01 06:38] LABS: ALT (SGPT) 72 U/L (8-55); AST (SGOT) 31 U/L (5-34); Alkaline Phosphatase 94 U/L (40-110); Anion Gap 7 mmol/L (10-20); BUN (Urea Nitrogen) 41 mg/dL (8.4-25.7); Bilirubin, Total 0.7 mg/dL (0.2-1.2); Calc. Creatinine Clearance 170 mL/min (70-130); Calcium 8.6 mg/dL (7.8-10.44); Carbon Dioxide 21 mmol/L (22-29); Chloride 120 mmol/L (98-107); Estimated GFR 103; Globulin 3.1 g/dL (2.4-3.5); Glucose 86 mg/dL (70-105); Protein, Total 6.1 g/dL (6.0-8.3); Sodium 144 mmol/L (136-145)
[2024-01-01 09:18] LABS: Troponin I 0.018 ng/mL (< 0.028)
[2024-01-01] MEDS: Allopurinol 300 MG TAB PO SCH (09:58)
[2024-01-01] MEDS: Loratadine 10 MG TAB PO SCH (09:58)
[2024-01-01] MEDS: DULoxetine 60 MG CAP PO SCH (09:58)
[2024-01-01] MEDS: Pantoprazole DR 40 MG TAB PO SCH (09:58)
[2024-01-01] MEDS: Atorvastatin Calcium 40 MG TAB PO SCH (09:58)
[2024-01-01] MEDS: Carvedilol 25 MG TAB PO SCH (09:58)
[2024-01-01] MEDS: Ferrous Sulfate 325 MG TAB PO SCH (09:58)
[2024-01-01] MEDS: Docusate 100 MG CAP PO SCH (09:59)
[2024-01-01] MEDS: Cyanocobalamin (Vitamin B-12) 1,000 MCG TAB PO SCH (09:59)
[2024-01-01] MEDS: Betamethasone Val 0.1% Lotion 60 ML BOT TOP SCH (11:25)
[2024-01-01 20:17] LABS: Hematocrit 21.3 % (42.0-52.0); Hemoglobin 6.5 g/dL (14.0-18.0)
[2024-01-01] MEDS: Acetaminophen 325 MG TAB PO PRN (22:00)
[2024-01-02 04:21] LABS: #Basophils Less than 0.03 10x3/uL (0.0-0.2); %Basophils 0.5 % (0.0-1.0); %Lymphocytes 30.5 % (21.0-51.0); %Monocytes 10.5 % (0.0-10.0); Hematocrit 23.6 % (42.0-52.0); Hemoglobin 7.4 g/dL (14.0-18.0); Mean Corpuscular HGB CONC 31.4 g/dL (32.0-36.0); Mean Corpuscular Hemoglobin 25.3 pg (27.0-31.0); Mean Corpuscular Volume 80.5 fL (78.0-98.0); Mean Platelet Volume 11.7 fL (7.4-10.4); Platelet Count 84 10x3/uL (130-400); RBC Distribution Width 19.8 % (11.5-14.5); Red Blood Cell (RBC) Count 2.93 mill/uL (4.70-6.10)
[2024-01-02 04:51] LABS: ALT (SGPT) 49 U/L (8-55); AST (SGOT) 21 U/L (5-34); Albumin 2.7 g/dL (3.5-5.0); Alkaline Phosphatase 73 U/L (40-110); Anion Gap 10 mmol/L (10-20); BUN (Urea Nitrogen) 44 mg/dL (8.4-25.7); Bilirubin, Total 0.6 mg/dL (0.2-1.2); Calc. Creatinine Clearance 166 mL/min (70-130); Calcium 8.2 mg/dL (7.8-10.44); Carbon Dioxide 19 mmol/L (22-29); Chloride 116 mmol/L (98-107); Estimated GFR 102; Globulin 2.6 g/dL (2.4-3.5); Glucose 102 mg/dL (70-105); Potassium 4.3 mmol/L (3.5-5.1); Protein, Total 5.3 g/dL (6.0-8.3); Sodium 141 mmol/L (136-145)
[2024-01-02 08:07] LABS: Hematocrit 26.8 % (42.0-52.0); Hemoglobin 8.1 g/dL (14.0-18.0)
[2024-01-02 09:36] LABS: Platelet Count 93 10x3/uL (130-400)
[2024-01-02] MEDS ORDERED: Acetaminophen 500 MG TAB PO SCH (09:45)
[2024-01-02] MEDS ORDERED: Iron Sucrose Complex 500 MG in Sodium Chloride 0.9% 250 ML 250 ML IVPB SCH (09:45)
[2024-01-02] MEDS: Sodium Ferric Gluconate 250 MG in Sodium Chloride 0.9% 250 ML 250 ML IVPB SCH (12:22)
[2024-01-02 14:24] LABS: #Basophils Less than 0.03 10x3/uL (0.0-0.2); %Basophils 0.8 % (0.0-1.0); %Eosinophils 5.4 % (0.0-10.0); %Lymphocytes 27.6 % (21.0-51.0); %Monocytes 13.4 % (0.0-10.0); Hematocrit 23.6 % (42.0-52.0); Hemoglobin 7.3 g/dL (14.0-18.0); Mean Corpuscular HGB CONC 30.9 g/dL (32.0-36.0); Mean Corpuscular Hemoglobin 25.8 pg (27.0-31.0); Mean Corpuscular Volume 83.4 fL (78.0-98.0); Platelet Count 73 10x3/uL (130-400); RBC Distribution Width 19.8 % (11.5-14.5); Red Blood Cell (RBC) Count 2.83 mill/uL (4.70-6.10)
[2024-01-03 09:16] LABS: #Basophils Less than 0.03 10x3/uL (0.0-0.2); %Basophils 0.3 % (0.0-1.0); %Eosinophils 4.1 % (0.0-10.0); %Lymphocytes 25.3 % (21.0-51.0); %Monocytes 7.8 % (0.0-10.0); %Neutrophils 62.2 % (42.0-75.0); Hematocrit 25.6 % (42.0-52.0); Hemoglobin 7.9 g/dL (14.0-18.0); Mean Corpuscular HGB CONC 30.9 g/dL (32.0-36.0); Mean Corpuscular Hemoglobin 25.8 pg (27.0-31.0); Mean Corpuscular Volume 83.7 fL (78.0-98.0); Platelet Count 79 10x3/uL (130-400); RBC Distribution Width 20.1 % (11.5-14.5); Red Blood Cell (RBC) Count 3.06 mill/uL (4.70-6.10)
[2024-01-03 09:25] LABS: ALT (SGPT) 42 U/L (8-55); AST (SGOT) 21 U/L (5-34); Albumin 2.8 g/dL (3.5-5.0); Alkaline Phosphatase 75 U/L (40-110); Anion Gap 10 mmol/L (10-20); BUN (Urea Nitrogen) 25 mg/dL (8.4-25.7); Bilirubin, Total 0.6 mg/dL (0.2-1.2); Calc. Creatinine Clearance 172 mL/min (70-130); Calcium 8.4 mg/dL (7.8-10.44); Carbon Dioxide 19 mmol/L (22-29); Chloride 116 mmol/L (98-107); Estimated GFR 103; Globulin 2.8 g/dL (2.4-3.5); Glucose 150 mg/dL (70-105); Potassium 3.7 mmol/L (3.5-5.1); Protein, Total 5.6 g/dL (6.0-8.3); Sodium 141 mmol/L (136-145)
[2024-01-03 15:11] LABS: Hematocrit 26.9 % (42.0-52.0); Hemoglobin 8.1 g/dL (14.0-18.0)
[2024-01-04 07:06] LABS: INR-International Normal Ratio 1.3; Prothrombin Time 16.3 sec (12.0-14.7)
[2024-01-04 07:07] LABS: #Basophils Less than 0.03 10x3/uL (0.0-0.2); %Basophils 0.6 % (0.0-1.0); %Eosinophils 5.1 % (0.0-10.0); %Lymphocytes 28.2 % (21.0-51.0); %Monocytes 10.9 % (0.0-10.0); %Neutrophils 54.9 % (42.0-75.0); Hematocrit 26.2 % (42.0-52.0); Hemoglobin 7.9 g/dL (14.0-18.0); Mean Corpuscular HGB CONC 30.2 g/dL (32.0-36.0); Mean Corpuscular Hemoglobin 25.6 pg (27.0-31.0); Mean Corpuscular Volume 85.1 fL (78.0-98.0); Mean Platelet Volume 12.9 fL (7.4-10.4); Platelet Count 78 10x3/uL (130-400); RBC Distribution Width 21.2 % (11.5-14.5); Red Blood Cell (RBC) Count 3.08 mill/uL (4.70-6.10)
[2024-01-04 07:10] LABS: ALT (SGPT) 36 U/L (8-55); AST (SGOT) 17 U/L (5-34); Albumin 2.9 g/dL (3.5-5.0); Alkaline Phosphatase 73 U/L (40-110); Anion Gap 10 mmol/L (10-20); BUN (Urea Nitrogen) 18 mg/dL (8.4-25.7); Bilirubin, Total 0.7 mg/dL (0.2-1.2); Calc. Creatinine Clearance 172 mL/min (70-130); Calcium 8.5 mg/dL (7.8-10.44); Carbon Dioxide 23 mmol/L (22-29); Chloride 114 mmol/L (98-107); Estimated GFR 103; Glucose 86 mg/dL (70-105); Protein, Total 5.9 g/dL (6.0-8.3); Sodium 143 mmol/L (136-145)
[2024-01-04] MEDS ORDERED: Iopamidol-370 76% 500 ML MDV (1 ML CHARGE) ONE (08:56)
[2024-01-04] MEDS ORDERED: PROPOFOL 20 ML ONE (09:35)
[2024-01-04] MEDS ORDERED: Lidocaine 1% PF 5 ML VIAL ONE (09:35)
[2024-01-04] MEDS ORDERED: Ketamine In 0.9 % NaCl 50 MG/5 ML SYRINGE ONE (09:44)
[2024-01-04] MEDS: Octreotide Acetate 1,250 MCG in Sodium Chloride 0.9% 250 ML 250 ML IVPB SCH (12:34)
[2024-01-05 05:38] LABS: #Basophils Less than 0.03 10x3/uL (0.0-0.2); %Basophils 0.3 % (0.0-1.0); %Lymphocytes 28.4 % (21.0-51.0); %Monocytes 12.8 % (0.0-10.0); %Neutrophils 52.2 % (42.0-75.0); Hemoglobin 7.7 g/dL (14.0-18.0); Mean Corpuscular HGB CONC 30.8 g/dL (32.0-36.0); Mean Corpuscular Volume 84.5 fL (78.0-98.0); Platelet Count 85 10x3/uL (130-400); RBC Distribution Width 21.5 % (11.5-14.5); Red Blood Cell (RBC) Count 2.96 mill/uL (4.70-6.10)
[2024-01-05 05:46] LABS: ALT (SGPT) 34 U/L (8-55); AST (SGOT) 21 U/L (5-34); Albumin 2.9 g/dL (3.5-5.0); Alkaline Phosphatase 75 U/L (40-110); Anion Gap 10 mmol/L (10-20); BUN (Urea Nitrogen) 19 mg/dL (8.4-25.7); Bilirubin, Total 0.9 mg/dL (0.2-1.2); Calc. Creatinine Clearance 152 mL/min (70-130); Calcium 8.3 mg/dL (7.8-10.44); Carbon Dioxide 25 mmol/L (22-29); Chloride 110 mmol/L (98-107); Estimated GFR 94; Globulin 2.9 g/dL (2.4-3.5); Glucose 107 mg/dL (70-105); Potassium 4.5 mmol/L (3.5-5.1); Protein, Total 5.8 g/dL (6.0-8.3); Sodium 140 mmol/L (136-145)
[2024-01-05] MEDS ORDERED: MINERAL OIL/WHITE PETROLATUM 3.5 GM TUBE ONE (11:22)
[2024-01-05] MEDS ORDERED: SUCCINYLCHOLINE/SOD CL,ISO/PF 200 MG/10 ML SYRINGE FS ONE (11:22)
[2024-01-05] MEDS ORDERED: Sodium Tetradecyl Sulfate 1% 2 ML VIAL ONE (11:52)
[2024-01-05] MEDS ORDERED: Dexamethasone 20 MG/5 ML VIAL ONE (11:56)
[2024-01-05] MEDS ORDERED: Ondansetron PF 4 MG/2 ML Vial ONE (11:56)
[2024-01-06 04:54] LABS: #Basophils Less than 0.03 10x3/uL (0.0-0.2); #Eosinophils Less than 0.03 10x3/uL (0.0-0.7); %Lymphocytes 15.2 % (21.0-51.0); %Monocytes 5.1 % (0.0-10.0); %Neutrophils 79.5 % (42.0-75.0); Hematocrit 24.1 % (42.0-52.0); Hemoglobin 7.1 g/dL (14.0-18.0); Mean Corpuscular HGB CONC 29.5 g/dL (32.0-36.0); Mean Corpuscular Hemoglobin 26.4 pg (27.0-31.0); Mean Corpuscular Volume 89.6 fL (78.0-98.0); Mean Platelet Volume 12.5 fL (7.4-10.4); Platelet Count 92 10x3/uL (130-400); RBC Distribution Width 21.7 % (11.5-14.5); Red Blood Cell (RBC) Count 2.69 mill/uL (4.70-6.10)
[2024-01-06 04:59] LABS: ALT (SGPT) 28 U/L (8-55); AST (SGOT) 16 U/L (5-34); Albumin 2.9 g/dL (3.5-5.0); Alkaline Phosphatase 68 U/L (40-110); Anion Gap 10 mmol/L (10-20); BUN (Urea Nitrogen) 30 mg/dL (8.4-25.7); Bilirubin, Total 0.7 mg/dL (0.2-1.2); Calc. Creatinine Clearance 139 mL/min (70-130); Calcium 8.2 mg/dL (7.8-10.44); Carbon Dioxide 22 mmol/L (22-29); Chloride 113 mmol/L (98-107); Estimated GFR 84; Globulin 2.9 g/dL (2.4-3.5); Glucose 123 mg/dL (70-105); Potassium 4.4 mmol/L (3.5-5.1); Protein, Total 5.8 g/dL (6.0-8.3); Sodium 141 mmol/L (136-145)
[2024-01-06 11:46] LABS: Troponin I Less than 0.010 ng/mL (< 0.028)
[2024-01-06 16:16] LABS: Hematocrit 26.1 % (42.0-52.0); Hemoglobin 8.2 g/dL (14.0-18.0)
[2024-01-07 04:59] LABS: ALT (SGPT) 22 U/L (8-55); AST (SGOT) 13 U/L (5-34); Albumin 2.8 g/dL (3.5-5.0); Alkaline Phosphatase 66 U/L (40-110); Anion Gap 8 mmol/L (10-20); BUN (Urea Nitrogen) 32 mg/dL (8.4-25.7); Bilirubin, Total 0.9 mg/dL (0.2-1.2); Calc. Creatinine Clearance 164 mL/min (70-130); Calcium 8.1 mg/dL (7.8-10.44); Carbon Dioxide 24 mmol/L (22-29); Chloride 113 mmol/L (98-107); Estimated GFR 102; Globulin 2.6 g/dL (2.4-3.5); Glucose 115 mg/dL (70-105); Protein, Total 5.4 g/dL (6.0-8.3); Sodium 141 mmol/L (136-145)
[2024-01-07 05:16] LABS: #Basophils Less than 0.03 10x3/uL (0.0-0.2); %Basophils 0.2 % (0.0-1.0); %Eosinophils 0.6 % (0.0-10.0); %Lymphocytes 15.5 % (21.0-51.0); %Neutrophils 76.1 % (42.0-75.0); Hematocrit 27.1 % (42.0-52.0); Hemoglobin 8.5 g/dL (14.0-18.0); Mean Corpuscular HGB CONC 31.4 g/dL (32.0-36.0); Mean Corpuscular Hemoglobin 27.3 pg (27.0-31.0); Mean Corpuscular Volume 87.1 fL (78.0-98.0); Mean Platelet Volume 11.9 fL (7.4-10.4); Platelet Count 82 10x3/uL (130-400); RBC Distribution Width 19.9 % (11.5-14.5); Red Blood Cell (RBC) Count 3.11 mill/uL (4.70-6.10)
[2024-01-07 09:05] LABS: #Basophils Less than 0.03 10x3/uL (0.0-0.2); %Basophils 0.3 % (0.0-1.0); %Eosinophils 0.7 % (0.0-10.0); %Lymphocytes 16.2 % (21.0-51.0); %Monocytes 4.2 % (0.0-10.0); %Neutrophils 78.3 % (42.0-75.0); Hematocrit 29.8 % (42.0-52.0); Hemoglobin 9.4 g/dL (14.0-18.0); Mean Corpuscular HGB CONC 31.5 g/dL (32.0-36.0); Mean Corpuscular Hemoglobin 27.6 pg (27.0-31.0); Mean Corpuscular Volume 87.6 fL (78.0-98.0); Mean Platelet Volume 12.4 fL (7.4-10.4); Platelet Count 92 10x3/uL (130-400); RBC Distribution Width 20.2 % (11.5-14.5)
[2024-01-07 11:53] VITALS: BP 119/59; TEMP 97.7
== END 2024-01-07 15:26 | disposition home or self-care (01) | DRG 432 ==
LOC: EEVIPCON → 2NO 22:54 → OBSVTOIN 01-02 15:25
PROVIDERS: ADMIT Emergency Medicine; ATTEND Emergency Medicine
PROC: 30233N1 Transfusion of Nonautologous Red Blood Cells into Peripheral Vein, Percutaneous Approach (ICD-10-PCS; 2024-01-01)
PROC: 06L38CZ Occlusion of Esophageal Vein with Extraluminal Device, Via Natural or Artificial Opening Endoscopic (ICD-10-PCS; principal; 2024-01-04)
PROC: 3E0G8TZ Introduction of Destructive Agent into Upper GI, Via Natural or Artificial Opening Endoscopic (ICD-10-PCS; 2024-01-05)
DX: K70.31 Alcoholic cirrhosis of liver with ascites (principal); I85.11 Secondary esophageal varices with bleeding; D62 Acute posthemorrhagic anemia; K76.6 Portal hypertension; K92.1 Melena; D61.818 Other pancytopenia; I44.7 Left bundle-branch block, unspecified; R74.01 Elevation of levels of liver transaminase levels; K70.30 Alcoholic cirrhosis of liver without ascites; I25.10 Atherosclerotic heart disease of native coronary artery without angina pectoris; M10.9 Gout, unspecified; Z96.653 Presence of artificial knee joint, bilateral; E03.9 Hypothyroidism, unspecified; I10 Essential (primary) hypertension; I48.91 Unspecified atrial fibrillation; E78.5 Hyperlipidemia, unspecified; Z95.5 Presence of coronary angioplasty implant and graft; Z79.899 Other long term (current) drug therapy; Z87.891 Personal history of nicotine dependence; Z90.49 Acquired absence of other specified parts of digestive tract
CPT/HCPCS: 36415; 36430; 74177; 80053; 82105; 82274; 84484; 85025; 85610; 86850; 86900; 86901; 93005; 93010; 96374; G0378; J1100; J2354; J2405; J2704; J2916; J3490; J7050; P9016; Q9967

== ENCOUNTER 2024-05-28 08:46 | Emergency (ER) | payer OTHER ==
[2024-05-28 09:59] LABS: ALT (SGPT) 47 U/L (Less than 45); AST (SGOT) 41 U/L (11-34); Albumin 3.2 g/dL (3.1-4.5); Alkaline Phosphatase 120 U/L (40-110); Anion Gap 10 mmol/L (10-20); BUN (Urea Nitrogen) 11 mg/dL (8.4-25.7); Bilirubin, Total 0.6 mg/dL (0.3-1.2); Calc. Creatinine Clearance 0 mL/min (70-130); Calcium 8.8 mg/dL (7.8-10.44); Carbon Dioxide 20 mmol/L (22-29); Chloride 117 mmol/L (98-107); Estimated GFR 107; Globulin 4.3 g/dL (2.4-3.5); Glucose 124 mg/dL (70-105); Potassium 3.9 mmol/L (3.5-5.1); Protein, Total 7.5 g/dL (6.0-8.3); Sodium 143 mmol/L (136-145)
[2024-05-28 10:11] LABS: Troponin I 0.011 ng/mL (< 0.028)
[2024-05-28 10:33] LABS: Hematocrit 29.5 % (42.0-52.0); Hemoglobin 9.1 g/dL (14.0-18.0); Mean Corpuscular HGB CONC 30.8 g/dL (32.0-36.0); Mean Corpuscular Hemoglobin 24.5 pg (27.0-31.0); Mean Corpuscular Volume 79.5 fL (78.0-98.0); Platelet Count 64 10x3/uL (130-400); RBC Distribution Width 16.7 % (11.5-14.5); Red Blood Cell (RBC) Count 3.71 mill/uL (4.70-6.10)
[2024-05-28 10:39] LABS: Band 3 % (5-11); Elliptocytes SLIGHT = 2-5 cells HPF (0-1); Eosinophils 6 % (0-10); Lymphocytes 21 % (21-51); Metamyelocyte 1 % (0-0); Monocytes 14 % (0-10); Neutrophil 51 % (42-75); Ovalocytes SLIGHT = 2-5 cells HPF (0-1); Platelet Adequacy Comment Significant Decrease; Polychromasia SLIGHT = 2-3 cells HPF (0-2); Reactive Lymphocytes 3 % (0-10); Schistocytes SLIGHT = 2-5 cells HPF (0-1); Smudge Cells 6.9 %
[2024-05-28] MEDS ORDERED: Nitroglycerin 0.4 MG TAB 1 EACH ONE (11:55)
[2024-05-28] MEDS ORDERED: Aspirin Chewable 81 MG TAB ONE (12:10)
[2024-05-28 12:25] LABS: Troponin I 0.011 ng/mL (< 0.028)
== END 2024-05-28 13:57 ==
LOC: ERS 08:46
DX: R07.2 Precordial pain (principal); R42 Dizziness and giddiness; D61.818 Other pancytopenia; I45.81 Long QT syndrome; I25.10 Atherosclerotic heart disease of native coronary artery without angina pectoris; E03.9 Hypothyroidism, unspecified; I10 Essential (primary) hypertension; E78.5 Hyperlipidemia, unspecified; I25.2 Old myocardial infarction; Z87.891 Personal history of nicotine dependence; Z79.82 Long term (current) use of aspirin; Z79.899 Other long term (current) drug therapy
CPT/HCPCS: 36415; 71045; 80053; 83690; 84484; 85025; 86850; 86900; 86901; 93005